=== PATIENT | male | born 1990 | race Caucasian/White ===

== ENCOUNTER 2018-03-31 09:47 | Emergency (ER) | payer OTHER ==
[~2018-03-31] VITALS: Ht 175.3 cm; Wt 87.0 kg
[2018-03-31 09:50] VITALS: Ht 175.3 cm; Wt 87.0 kg
[2018-03-31] MEDS ORDERED: KETOROLAC 30 MG INJ IM STA (10:12)
--- NOTE | 2018-03-31 10:34 | ERD ---
ER Documentation Chief Complaint Chief Complaint RT UPPER ABD PAIN X 1 WEEK H/O GALLSTONES HPI 27-year-old male with past medical history of gallstones presenting to the emergency department complaining of right upper quadrant pain constantly for the past week. Symptoms began after eating pizza, chips, and soda. He describes the pain as sharp, rated 6/10 in severity. He took Tylenol at home with some relief. He has had some intermittent nonbilious and nonbloody emesis, but no vomiting today. He denies any fevers or chills or other symptoms at this time. ROS All systems reviewed and are negative except as per history of present illness. Medications Home Meds Active Scripts Ondansetron (Ondansetron Odt) 4 Mg Tab.rapdis, 4 MG PO Q6H PRN for NAUSEA AND/OR VOMITING, #10 TAB Prov:KATELYN EWING PA-C 03/31/18 Naproxen* (Naprosyn*) 500 Mg Tablet, 500 MG PO BID PRN for PAIN AND/OR INFLAMMATION, #30 TAB Prov:KATELYN EWING PA-C 03/31/18 Allergies Allergies: Coded Allergies: No Known Allergy (Verified Allergy, 11/03/10) PMhx/Soc History of Surgery: No (NO MEDICAL HISTORY OR SURGICAL HISTORY) Hx Alcohol Use: Yes (SOCIALLY) Hx Substance Use: No Hx Tobacco Use: Yes Smoking Status: Current some day smoker FmHx Family History: No diabetes Physical Exam Vitals Vital Signs Date Temp Pulse Resp B/P (MAP) Pulse Ox O2 O2 Flow FiO2 Time Delivery Rate 03/31/18 98.3 78 18 151/86 98 09:50 (107) Physical Exam Const: No acute distress Head: Atraumatic Eyes: Normal Conjunctiva ENT: Normal External Ears, Nose and Mouth. Neck: Full range of motion. No meningismus. Resp: Clear to auscultation bilaterally Cardio: Regular rate and rhythm, no murmurs Abd: Soft, mild tenderness palpation of the right upper quadrant, no true Harmon sign, no rebound tenderness or guarding, no McBurney's point tenderness, non distended. Normal bowel sounds Skin: No petechiae or rashes Back: No midline or flank tenderness Ext: No cyanosis, or edema Neur: Awake and alert Psych: Normal Mood and Affect Result Diagram: 03/31/18 1020 03/31/18 1020 Results 24 hrs Laboratory Tests Test 03/31/18 10:20 White Blood Count 9.2 10^3/ul Red Blood Count 5.55 10^6/ul Hemoglobin 15.6 g/dl Hematocrit 46.6 % Mean Corpuscular Volume 84.0 fl Mean Corpuscular Hemoglobin 28.1 pg Mean Corpuscular Hemoglobin Concent 33.5 g/dl Red Cell Distribution Width 12.2 % Platelet Count 239 10^3/UL Mean Platelet Volume 12.0 fl Immature Granulocytes % 0.300 % Neutrophils % 66.7 % Lymphocytes % 20.2 % Monocytes % 10.6 % Eosinophils % 1.7 % Basophils % 0.5 % Nucleated Red Blood Cells % 0.0 /100WBC Immature Granulocytes # 0.030 10^3/ul Neutrophils # 6.1 10^3/ul Lymphocytes # 1.9 10^3/ul Monocytes # 1.0 10^3/ul Eosinophils # 0.2 10^3/ul Basophils # 0.1 10^3/ul Nucleated Red Blood Cells # 0.0 10^3/ul Prothrombin Time 11.4 Sec Prothrombin Time Ratio 0.9 INR International Normalized Ratio 0.82 Activated Partial Thromboplast Time 32.6 Sec Urine Color YELLOW Urine Clarity CLEAR Urine pH 6.0 Urine Specific [place] 1.030 Urine Ketones NEGATIVE mg/dL Urine Nitrite NEGATIVE mg/dL Urine Bilirubin NEGATIVE mg/dL Urine Urobilinogen 2+ mg/dL Urine Leukocyte Esterase NEGATIVE Anjum/ul Urine Microscopic RBC 1 /HPF Urine Microscopic WBC 1 /HPF Urine Mucus MANY /HPF Urine Hemoglobin NEGATIVE mg/dL Urine Glucose NEGATIVE mg/dL Urine Total Protein 1+ mg/dl Sodium Level 141 mmol/L Potassium Level 4.3 mmol/L Chloride Level 100 mmol/L Carbon Dioxide Level 32 mmol/L Anion Gap 9 Blood Urea Nitrogen 10 mg/dl Creatinine 1.02 mg/dl Est Glomerular Filtrat Rate mL/min > 60 mL/min Glucose Level 115 mg/dl Calcium Level 10.1 mg/dl Total Bilirubin 0.3 mg/dl Direct Bilirubin 0.00 mg/dl Indirect Bilirubin 0.3 mg/dl Aspartate Amino Transf (AST/SGOT) 58 IU/L Alanine Aminotransferase (ALT/SGPT) 73 IU/L Alkaline Phosphatase 77 IU/L Total Protein 8.7 g/dl Albumin 5.0 g/dl Globulin 3.70 g/dl Albumin/Globulin Ratio 1.35 Lipase 34 U/L Current Medications Medications Dose Sig/Dunia Start Time Status Last (Trade) Ordered Route PRN Stop Time Admin Dose Reason Admin Ketorolac 30 mg ONCE STAT 03/31/18 DC 03/31/18 Tromethamine IM 10:12 10:21 (Toradol) 03/31/18 10:16 [place] [id number] Radiology Main Line: [phone] DIAGNOSTIC IMAGING REPORT Patient: NAOMY RUIZ : 1990 Age: 27 Sex: M MR #: [id number] DOS: 03/31/18 1012 Ordering MD: KATELYN EWING PA-C Location: [facility] Room/Bed: PROCEDURE: Gallbladder ultrasound CLINICAL INDICATION: Abdominal pain. COMPARISON: None relevant listed. TECHNIQUE: Multiple transverse and longitudinal gusman-scale images of the abdomen were obtained, supplemented with color, power, and spectral Doppler imaging with appropriate. FINDINGS: No distension. No wall thickening. No pericholecystic fluid. Cholelithiasis. Common bile duct: 1.5 mm. Visualized liver: 17.4 cm. Echodense likely on the basis of hepatic steatosis. Pancreas: Obscured by bowel gas Right Kidney: 9.0 cm. No hydronephrosis or space occupying renal mass. IMPRESSION: 1. Cholelithiasis without wall thickening or surrounding fluid. 2. Echodense hepatic parenchyma likely on the basis of hepatic steatosis. 3. Obscured pancreas. RPTAT: HRSR Physician Judi Date Time Electronically viewed and signed by Physician Judi on 03/31/2018 11:25 RR/ CC: KATELYN EWING PA-C [id number] Procedures/MDM 27-year-old male presenting to the emergency department complaining of right upper quadrant pain. The patient did have some tenderness to palpation of the right upper quadrant but no true Harmon sign. There is no rebound tenderness or guarding. No McBurney's point tenderness was noted. Patient was administered IM Toradol in the department with good response. On reevaluation he was feeling improved. CBC: no e/o of systemic infection or severe anemia CMP: no e/o severe acidosis, alkalosis, renal failure, diabetic ketoacidosis, liver disease Lipase: no e/o pancreatitis PT/INR: normal coagulation Urine: no e/o acute infection or hematuria Medical decision making: Patient symptoms are likely secondary to gallstones with biliary colic. No evidence to suggest cholecystitis, appendicitis, bowel obstruction, diverticulitis, or other acute surgical abdomen. Patient's gastrointestinal symptoms have stabilized while in the department. No evidence of severe dehydration, sepsis, or surgical abdomen. Extensive discussion with family and patient that occult disease cannot be ruled out. 8 hour recheck for repeat abdominal exam is planned. No evidence of life-threatening pathology at time of discharge. Pt/family in agreement with discharge plan/diagnosis. Pt/family advised to return immediately with any new or worsening symptoms. Follow-up with primary care physician within the next 1-2 days. Patient's blood pressure was elevated (>120/80) but appears stable without evidence of hypertension emergency or urgency. The patient is to follow-up and pursue outpatient monitoring and therapy with their primary care physician within 1 week and return immediately if they have any new, worsening, or mendez rning symptoms. Disclaimer: Inadvertent spelling and grammatical errors are likely due to EHR/dictation software use and do not reflect on the overall quality of patient care. Also, please note that the electronic time recorded on this note does not necessarily reflect the actual time of the patient encounter. Departure Diagnosis: Primary Impression: Abdominal pain Abdominal location: right upper quadrant Qualified Codes: R10.11 - Right upper quadrant pain Condition: KATELYN Reese PA-C Mar 31, 2018 10:34
[2018-03-31] MEDS ORDERED: NAPR-985 PO (11:29)
[2018-03-31] MEDS ORDERED: ONDA4TAB14 PO (11:29)
== END 2018-03-31 11:35 | disposition home or self-care (01) ==
LOC: FTE 09:47
DX: R10.11 Right upper quadrant pain (principal)
CPT/HCPCS: 36415; 76705; 80053; 81001; 83690; 85025; 85610; 85730; 96372; J1885; Z7502